=== PATIENT | female | born 1945 | race Caucasian/White ===

== ENCOUNTER 2016-12-09 04:10 | Inpatient (IN) | payer OTHER ==
--- NOTE | ~2016-12-09 | CN ---
Consultation Report [facility] [address] [place]. [address] NAME: ALBER KHAN : 47 STATUS : ADM IN PAT#: [id number] AGE: 71 ADM/REG DATE : 12/09/16 MR#: [id number] REPORT SERV DATE: 12/12/16 DICTATED BY: RUDOLPH PRAJAPATI DATE: 12/12/16 REPORT STATUS : Draft TRANSCRIBED BY: MODL DATE: 12/12/16 PSYCHIATRIC CONSULTATION DATE OF CONSULTATION: 12/12/2016 I reviewed this patient's current and old medical records. HISTORY OF PRESENT ILLNESS: She was admitted with severe back pain. She is now status post yet another surgical intervention for spine stabilization. The presence of diskitis and osteomyelitis is suspected. I was consulted to address her anxiety. PAST PSYCHIATRIC HISTORY: I previously saw her in consultation on 08/12/2016 when anxiety was again an issue. She has suffered from anxiety all of her adult life. She now wants to get off Cymbalta, which she has taken for a number of years because it is causing her to sweat excessively. She said that recently, her PCP has switched her to Paxil, but that also caused excessive sweating. She takes Xanax on a p.r.n. basis, but usually takes 0.5 mg b.i.d. SOCIAL HISTORY: She lives with her . MENTAL STATUS: She was complaining of feeling cold. She was cooperative, but somewhat guarded in attitude. Her mood was anxious. Her affect was full and appropriate. Her thinking was logical. She had no delusions. She had no hallucinations. She was oriented to time, place, and person. She demonstrated good recent and remote memory. DIAGNOSIS: Generalized anxiety disorder. RECOMMENDATIONS: I will discontinue the Cymbalta and start her on Lexapro 10 mg daily. While she is in the hospital, I believe we should give her a fixed dosing of Xanax such as 0.5 mg q.a.m. and 1 mg q.h.s. After discharge, she can return to her home Xanax regimen. I will sign off. MICHAEL/JOSE Rudolph Prajapati M.D. / [id number] CC: Lester Navarro D.O.
--- NOTE | ~2016-12-09 | DS ---
Discharge Summary [id number] [facility] [place] [address] NAME: ALBER KHAN : 47 STATUS : DIS IN PAT#: [id number] AGE: 72 ADM/REG DATE : 12/09/16 MR#: [id number] REPORT SERV DATE: 01/16/17 DICTATED BY: LESTER CA DATE: 01/15/17 REPORT STATUS : Draft TRANSCRIBED BY: JOSE DATE: 01/15/17 Data Collection from hospitalization DISCHARGE DIAGNOSES: 1. Previous multiple thoracolumbar surgeries. 2. 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 3. Broken natasha with pseudoarthrosis at T12-L1. 4. Severe spinal stenosis T12-L1 secondary to cage migration. 5. Possible osteomyelitis diskitis T12-L1. 6. Hypertension. 7. Depression. 8. Hypercholesterolemia. 9. Sleep apnea. 10.Coronary artery disease. 11.Chronic urinary tract infections. CONSULTATIONS: 1. Grant Gurrola M.D. 2. Rudolph Alvarez M.D. PROCEDURES: 1. Microscopic surgery hardware removal including rods and cage. Partial corpectomy at T12-L1, incision and drainage of thoracolumbar wound, 12/09/2016. 2. Left side T10-T11 hemilaminectomy, foraminotomy, and facetectomy. Transforaminal diskectomy, T10-11; irrigation and debridement, T10-T11 and T12-L1, 12/14/2016. 3. Repeat irrigation and debridement, interbody fusion with cortical cancellous allograft and bone morphogenic protein. T10-T11, T12-L1, posterolateral spinal fusion with segmental Solera titanium instrumentation, T3-T4, instrumentation to the pelvis, 12/16/2016. 4. CT scan of the lumbar spine without contrast and CT scan of the thoracic spine without contrast, 12/12/2016. PATHOLOGY: Spine, thoracic, lumbar bone tissue and hardware-soft tissue with black foreign material consistent with metallic debris, necrotic bone fragments with calcific debris, no acute inflammation seen. Orthopedic hardware - see gross description. Intervertebral disk, T11-12, - fibrocartilaginous tissue with degenerative changes and focal acute inflammation. Spine, thoracic, and hip bone and tissue - soft tissue - black foreign material consistent with metallic debris, focal acute inflammation. Bone - repair to changes, no acute inflammation seen. DISCHARGE MEDICATIONS: Xanax 1 mg twice a day, Lexapro 10 mg daily, Neurontin 800 mg three times a day, Zosyn 3.375 g IV every 8 hours, MiraLAX powder one packet every morning, Mylanta 30 mL as needed, Dulcolax 15 mg as needed, milk of magnesia 30 mL twice a day as needed, Hyzaar one tablet every morning, hormone compound one capsule at bedtime. ALLERGIES: ALLERGY TABLETS ONE TABLET DAILY NEEDED, PERCOCET 10/325 ONE TABLET EVERY SIX HOURS NEEDED. Discharge Summary [id number] [place]. [address] NAME: ALBER KHAN : 47 STATUS : DIS IN PAT#: [id number] AGE: 72 ADM/REG DATE : 12/09/16 MR#: [id number] REPORT SERV DATE: 01/16/17 DICTATED BY: LESTER CA DATE: 01/15/17 REPORT STATUS : Draft TRANSCRIBED BY: JOSE DATE: 01/15/17 CONDITION AT DISCHARGE: Stable. DISPOSITION: The patient was discharged to [facility] on a regular diet with activities as instructed. HOSPITAL COURSE: This is a 72-year-old female who had, had spine abnormalities over the last 20 plus years. Her original procedures done many years ago and she has had many procedures since then. This was due to a combination of advanced including multiple lumbar fusions, flat back deformity, and attempts at correction with osteotomy of the flat back deformity etc. The patient had, had surgery at multiple locations. She had not had any surgery for several years and then recently had a marked increase in her pain. Workup revealed abnormal findings particularly at T11 and T12 although there was hardware in place. The hardware does cause some artifact. The official MRI report of the thoracic spine indicated extensive motion, degradation, and multilevel areas of significant magnetic susceptibility artifacts due to metal present. There was an abnormal signal pattern at the inferior T9, superior T10 vertebra, and at T9 and T10 intervertebral disk levels with heterogeneous enhancement postcontrast as well as surrounding heterogeneity enhancing soft-tissue thickening in the paravertebral soft tissue region. This was suspicious for diskitis and osteomyelitis pattern with suspected paravertebral phlegmon formation. There was also heterogeneous diffuse irregular abnormal signal T12 vertebra, which showed hyperintense signal on T2 and inversion recovery sequence and heterogeneous enhancement postcontrast extending into the posterior T11-T12 disk interspace with adjacent loss of height at T11 vertebra. There was surrounding paravertebral soft tissue thickening, which showed heterogeneous enhancing postcontrast. This was suspicious for diskitis, osteomyelitis pattern versus extensive reactive signal changes associated with loosening of the pedicles of T12, most prominent on the left side. There was severe spinal canal stenosis at and to the left of midline at T12 followed by hyperintense signal protrusion from the left posterior vertebra seen best on T2 weighted axial images although showing no enhancement postcontrast. The etiology was unclear. This was new compared to a CT scan from January 2013. This could represent chronic heterotopic bone formation associated with abnormal left-sided pedicle. The spinal canal was narrowed to only 4.9 mm and centrally with severe enhancement of the spinal canal and left lateral recess and neural foramina. In addition to the MRI findings, the patient has had an elevated sedimentation rate and elevated CRP. She has not had any fevers, chills, night sweats, or any symptoms that could be compatible with a systemic response to infection. She had become rather limited in her mobility. She had to have assistance just to transfer in and out of the wheelchair and get to the bathroom, is completely wheelchair- bound at this time secondary to chronic pain. Treatment options were discussed and it was elected to proceed with surgical intervention. She was admitted to the hospital at this time for further evaluation and treatment. Upon admission, she was taken to the operating room where she underwent the above-mentioned procedure. She tolerated this well. There were no complications. Postoperatively, she was seen by Dr. Grant Gurrola regarding possible spine infection. During her operation there was serous fluid in the disk space and some phlegmon type tissues, this was sent for culture. Partial corpectomy is being done at T12 and L1. The metallic cage used for the spine consolidation was migrated and impinging on the cord. A natasha was broken on the left side. A long natasha was placed for stabilization on the right side and some tobramycin was placed in Discharge Summary [address] [address] NAME: ALBER KHAN : 47 STATUS : DIS IN [facility]#: [id number] AGE: 72 ADM/REG DATE : 12/09/16 MR#: [id number] REPORT SERV DATE: 01/16/17 DICTATED BY: LESTER CA DATE: 01/15/17 REPORT STATUS : Draft TRANSCRIBED BY: JOSE DATE: 01/15/17 the wound. The patient reported having problems with urinary tract infections and said she had been hospitalized at [facility] and may [facility] last year for urinary tract infection. She remembered being given nitrofurantoin. Urine cultures from 2016, in the [facility] system had grown very sensitive Klebsiella and later Enterococcus faecalis. It appeared that the patient had been on chronic nitrofurantoin towards the Enterococcus and Klebsiella that she grew in the urine in 2016, were both sensitive. She had some form of hormone compounds. Cultures were pending. We were going to use empiric daptomycin and aztreonam for now. On postop day 1, she was doing well. Homans sign was negative. Her dressings were clean, dry, and intact. She was afebrile. Her blood pressure was low. Daptomycin and aztreonam were continued for now. IV fluids were decreased. On the , she was a little hoarse. She could move her legs okay. She was anxious. She had, had some night sweats that she felt was related to Cymbalta. On 12/12/2016, she was seen by Dr. Rudolph Alvarez to address her anxiety. He had seen her in July 2016, when her anxiety had been an issue. She had suffered from anxiety all of her adult life. She now wants to get off Cymbalta, which she had taken for number of years because it was causing her to sweat excessively. She said that recently her primary care physician had switched her to Paxil, but that also caused excessive sweating. She takes Xanax on an as needed basis, but they usually takes 0.5 mg twice a day. The Cymbalta was going to be discontinued and we were going to start her on Lexapro. She was felt to have a generalized anxiety disorder. While she was in the hospital, he felt that she should be given a sixth dose of Xanax. After discharge, she could return to her home Xanax regimen. Her blood cultures were negative. On 12/13/2016, she had a CT scan of the lumbar spine without contrast and a CT scan of the thoracic spine without contrast. The patient had definite gross loss of bone on both the inferior body of T12 and superior body of L1 missing. The patient has a three column instability that was only being stabilized by the right-sided hardware. She was not able to get out of bed. A followup CT scan had shown that there was still some questionable defect of the bone at T10 and T11 that could potentially still have some infectious area. We would also need to repeat the irrigation and debridement, at T12-L1. 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 On 12/14/2016, she was taken to the operating room where she underwent the above-mentioned procedure. She tolerated this well and there were no complications. She was evaluated by Physical Therapy. It was felt that she would need a very long course of antibiotics. She had, had some itching and some confusion. On 12/16/2016, she was afebrile. Her blood pressure control was a little better. Aztreonam was continued. On 12/16/2016, she was taken back to the operating room where she underwent the above-mentioned procedure. She tolerated this well and there were no complications. On 12/17/2016, she was afebrile. Her cultures were negative. She had no complaints of leg pain. The aztreonam was continued. She had no shortness of breath. She did complain of severe back pain. Blood pressure control was variable. ESR was found to be 114. She had no shortness of breath. The right side of her back hurts more than the left. Over the next couple of days, she remained stable. A PICC line was inserted. She continued to remain afebrile. Her abdomen remained soft and nontender. She complained of severe right flank and back pain when moving or walking. She continued to progress and discharge planning was performed. She had no new symptoms. On 12/26/2016, discharge instructions were given. Due to her improved and stable condition, she was discharged to [facility] with the above- stated instructions. Discharge Summary [address] [address] NAME: ALBER KHAN : 47 STATUS : DIS IN [facility]#: [id number] AGE: 72 ADM/REG DATE : 12/09/16 MR#: [id number] REPORT SERV DATE: 01/16/17 DICTATED BY: LESTER CA DATE: 01/15/17 REPORT STATUS : Draft TRANSCRIBED BY: JOSE DATE: 01/15/17 Information collected by: Maricel Alvares I submit the above information as my discharge summary. TG/JOSE Lester Ca D.O. / [id number] CC: Van De La Cruz M.D. Denis Kennedy, M.D. Paul Cornea, M.D. [facility]
--- NOTE | ~2016-12-09 | OP ---
Record Of Operation [facility] [address] [place]. [address] NAME: ALBER KHAN : 47 STATUS : ADM IN PAT#: [id number] AGE: 71 ADM/REG DATE : 12/09/16 MR#: [id number] REPORT SERV DATE: 12/09/16 DICTATED BY: VU CA DATE: 12/09/16 REPORT STATUS : Draft TRANSCRIBED BY: MODL DATE: 12/09/16 DATE OF PROCEDURE: 12/09/2016 PREOPERATIVE DIAGNOSES: 1. Previous multiple thoracolumbar surgeries. 2. Possible hematogenous osteomyelitis, T11-12 per MRI report, but T12-L1 at surgery. POSTOPERATIVE DIAGNOSES: 1. Previous multiple thoracolumbar surgeries. 2. Possible hematogenous osteomyelitis, T11-12 per MRI report, but T12-L1 at surgery. 3. Broken natasha with pseudoarthrosis at T12-L1. 4. Severe spinal stenosis, T12-L1 secondary to cage migration. 5. Possible osteomyelitis diskitis, T12-L1. PROCEDURES: 1. Microscopic surgery. 2. Hardware removal, including rods and cage. 3. Partial corpectomy of T12-L1. 4. Incision and drainage for thoracolumbar wound. SURGEON: Vu Ca D.O. GRADES 1 THROUGH 6 TEACHER: Francis Chowdhury. ANESTHESTIC: General. BLOOD LOSS: 150 mL. INDICATIONS: Indications for surgery and risks have been explained. They are listed in history and physical. See that for detail. DESCRIPTION OF PROCEDURE: The patient was brought to the operative suite. No antibiotics given. General anesthetic including endotracheal intubation was administered. Griffiths catheter was placed. The patient was placed prone on a Sunny spine frame. Bony prominences were carefully padded. Thoracolumbar spine was scrubbed with Hibiclens solution. DuraPrep was painted. Sterile drapes were applied. With headlight illumination in the midline and loupe magnification at midline, incision was carried out. Initially, we were going to expose from approximately T8-L2. We divided the fascia in the midline. The paraspinous muscles were retracted laterally. Intraoperative CT scan with O-arm was then obtained to assist with navigational purposes and when we saw the CT scan, much to our surprise, we saw the significant amount of inferior body of T12 and superior body of L1 had been resorted by either instability or osteomyelitis diskitis. There was also a cage migration posterolateral on the left side with impingement on the cord. We then decided to expose completely the hardware. When we had exposed the hardware on the left side, we found that the natasha had broken at the connection between the darryn and Record Of Operation [facility] [address] [place]. [address] NAME: ALBER KHAN : 47 STATUS : ADM IN PAT#: [id number] AGE: 71 ADM/REG DATE : 12/09/16 MR#: [id number] REPORT SERV DATE: 12/09/16 DICTATED BY: VU CA DATE: 12/09/16 REPORT STATUS : Draft TRANSCRIBED BY: JOSE DATE: 12/09/16 the natasha previously. The hardware was completely removed by exposure and then removing. Since the screws themselves were quite stable on T7, 8, and 9 distally on the left, they were loose. On the right, the natasha was removed and all of the screws both proximal and distal were stable and appeared to be well fixed. There was gross instability at T12-L1. Once this was completed, we then used the microscope that was sterilely draped and with navigational assistance, we identified the transverse process at T12 and the remaining transverse process of L1. I went from lateral to medial, identifying the T12 exiting nerve root and then carefully working toward the canal. We did find that there was some serous- type fluid over the hardware on the left side around L2 and cultures were taken. In addition, once we exposed the disk space laterally at T12-L1, there was definitely a straw- colored fluid that was cultured. There was some disk material and phlegmonous tissue that was sent for pathology as well. The fibrous phlegmon-type tissue in the intervening space between the remaining body of T12 and L1 was debrided. Partial corpectomy was carried out to get down more natural of a bleeding bone. Very carefully under the microscope, I then worked from lateral to medial and carefully finally exposed the cage from the lateral aspect. We then very gently were able to manipulate the cage anteriorly into the interbody space and laterally staying away from the cord itself. Cage was successfully removed without difficulty. We then copiously irrigated the entire wound. Tobramycin powder was placed within the wound since she was allergic to multiple antibiotics. After cultures were taken, clindamycin 600 mg was given IV. We then placed a long natasha from T7-L4 on the right side to provide some temporary stabilization. The patient is not stable enough to be gotten out of bed. She will have to be log rolled and maintained in a bed rest until we are able to return to surgery, repeat irrigation and debridement, and reconstruct in a more definitive manner. I did not want to do the reconstruction today because I do not know if there is true infection. If so, I do not know what organism, and particularly if there should be a MRSA, I would not want to reconstruct until there has been multiple irrigation and debridements. After placing the natasha on the right side, the natasha was still high and was quite stable. We placed a 15 Nash drain. The myofascial layer was closed with double- looped #1 PDS suture. The subcutaneous tissue was closed with 2-0 Vicryl suture, 2-0 vertical mattress nylon suture was used for skin closure. Sterile dressings were applied. The patient returned to supine position, awakened, extubated, and taken to the recovery room in satisfactory condition having tolerated the procedure well. Sponge, needle, and instrument counts were correct. No intraoperative complications noted. SH/MODL Vu Ca D.O. / [id number] CC: Vu Ca D.O.
--- NOTE | ~2016-12-09 | CN ---
Consultation Report [facility] [address] [place]. [address] NAME: ALBER KHAN : 47 STATUS : ADM IN [facility]#: [id number] AGE: 71 ADM/REG DATE : 12/09/16 MR#: [id number] REPORT SERV DATE: 12/10/16 DICTATED BY: DOMITILA YANES DATE: 12/09/16 REPORT STATUS : Draft TRANSCRIBED BY: MODL DATE: 12/09/16 INFECTIOUS DISEASE CONSULTATION DATE OF CONSULTATION: REASON FOR CONSULT: Possible spine infection. HISTORY OF PRESENT ILLNESS: A 71 years old white lady with extensive spine fusion surgeries from T9 to the sacral spine, bilateral knee replacement, sleep apnea, hypertension, coronary artery disease, recurrent UTIs, who I saw in 2012 for Pseudomonas thoracic spine infection. Unfortunately, I cannot access the note from 2012 in [facility] or [facility]. It appears that I treated her with aztreonam in the hospital. At some point, we tried Cipro, but she really had severe arthralgias. I have not seen her lately. She says she has been weak since June with low back and hip pain. Eventually, she was unable to move and get out of bed. She also states that in July after an epidural injection, she became incontinent of urine and then later of stools. She did not seek attention from Dr. Navarro until recently. She had an MRI of the thoracic spine at the end of October, had motion artifact, but showed abnormal signal at T9-T10 endplates and T9-T10 disks with some enhancing soft tissue and the paravertebral soft tissues. This was concerning for an osteomyelitis and diskitis and paravertebral phlegmon. Also abnormal signal at T12, T1, and T11 disk, with vertebral height loss at T11 and paravertebral soft tissue thickening, again suspicious for diskitis and osteomyelitis. There is also severe central spine stenosis at T12. She had apparently elevated inflammatory markers, so Dr. Navarro decided to admit the patient for surgery. Today, he had an exploration and found an unstable T12-L1 joint, there is serous fluid in the disk space and some phlegmon type tissue. This was sent for culture. The partial corpectomy was done at T12 and L1. The metallic cage used for the spine consolidation was migrated and impinging on the cords, a natasha was broken on the left side. Dr. Navarro put a long natasha for stabilization on the right side and put some tobramycin in the wound. The patient reports having problems with urinary tract infections and that she was hospitalized at [facility] and [facility] last year for UTI. She remembers being given nitrofurantoin. I found urine cultures in the [facility] from 2016 that grew very sensitive Klebsiella and later an enterococcus faecalis. She reports alternating soft and hard stools. No shortness of breath. No knee pain. No decubiti. PAST MEDICAL HISTORY: As mentioned above plus hyperlipidemia. ALLERGIES: SHE REMEMBER HAVING MAYBE A RASH TO PENICILLIN, MAYBE 10 YEARS AGO. SHE STATES SHE IS ABLE OR CAN TAKE KEFLEX. SHE DOES NOT KNOW ABOUT CEPHALOSPORINS OR VANCOMYCIN WHETHER SHE HAS AN ALLERGY OR NOT. CIPRO CAUSED JOINT WITH TENDON PAIN. Consultation Report [facility] [address] [place]. [address] NAME: ALBER KHAN : 47 STATUS : ADM IN [facility]#: [id number] AGE: 71 ADM/REG DATE : 12/09/16 MR#: [id number] REPORT SERV DATE: 12/10/16 DICTATED BY: DOMITILA YANES DATE: 12/09/16 REPORT STATUS : Draft TRANSCRIBED BY: JOSE DATE: 12/09/16 MEDICATIONS ON ADMISSION: Xanax as needed, baclofen, Voltaren, duloxetine, gabapentin, losartan with hydrochlorothiazide, nitrofurantoin at bedtime, Percocet as needed, MiraLAX, some hormone compound, and an allergy tablet. SOCIAL HISTORY: Lives with her . She gets some help during the day. FAMILY HISTORY: Not obtained at this time. PHYSICAL EXAMINATION: GENERAL: She is alert. HEENT: Oral mucosa without erythema. Sclerae are white. LUNGS: Clear to auscultation anteriorly. HEART: Regular rhythm with a soft murmur. ABDOMEN: Compressible, soft. EXTREMITIES: Knees without inflammatory changes. Feet without erythema. She has a Griffiths catheter. LABORATORY WORK: Creatinine 1.0, WBC 8, hemoglobin 8. Microbiology: L3 lumbar fluid Gram stain, rare white blood cells, no organisms. T12-L1 disk space Gram stain, moderate white blood cells, no organisms. Chest x-ray without infiltrates but there are low lung volumes. ASSESSMENT AND PLAN: 1. Possible T12-L1 osteomyelitis and diskitis, status post surgical debridement today. 2. History of extensive spine fusion surgeries. 3. History of Pseudomonas T8 with T9 infection in 2013, I cannot access those records. 4. History of urinary tract infection .. 5. History of bilateral knee replacement. 6. States she has been incontinent of urine and stool since July. 7. History of antibiotic intolerances and allergies. It looks like she is on chronic nitrofurantoin to which the enterococcus and Klebsiella that she grew in the urine in 2016 are both sensitive. She takes some form of hormone compound and I have not talked to her about this yet. Pending cultures. We will use empiric daptomycin and aztreonam, and hopefully, could do penicillin allergy testing. I discussed with the patient. MIKE/JOSE Consultation Report [address] [place]. [address] NAME: ALBER KHAN : 47 STATUS : ADM IN [facility]#: [id number] AGE: 71 ADM/REG DATE : 12/09/16 MR#: [id number] REPORT SERV DATE: 12/10/16 DICTATED BY: DOMITILA YANES DATE: 12/09/16 REPORT STATUS : Draft TRANSCRIBED BY: JOSE DATE: 12/09/16 Domitila Yanes M.D. / [id number] CC: Lester Navarro D.O.
--- NOTE | ~2016-12-09 | OP ---
Record Of Operation [facility] [address] [place]. 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 PROCEDURES: 1. Repeat irrigation and debridement. 2. Interbody fusion with cortical cancellous allograft and bone morphogenic protein, T10- T11, T12-L1. 3. Posterolateral spinal fusion with segmental Solera titanium instrumentation, T3 to T4 instrumentation to the pelvis. SURGEON: Lester Ca D.O. MILK HOUSE WORKER: Francis Chowdhury. ANESTHESIA: General. ESTIMATED BLOOD LOSS: 500 mL. INDICATIONS FOR SURGERY: A 71-year-old female, who has had multiple spine surgeries in the past. Now, she has developed a significant osteomyelitis, diskitis, at T10-T11 and T12-L1. She has a large bony defect particularly at T12-L1 with at least half the body of T12 resolved and approximately a third of the body of L1 missing. At T10-11, there was a left- sided small area of osteomyelitis and diskitis. These have all been debrided and repeatedly washed out. Now brought to surgery for final reconstruction. The defect at T12-L1 is definitely problematic and that there was definitely a three-column instability. We will need many points of fixation both above and below. Thus, the exposure was widened on our last surgery just two days ago to repeat the irrigation and debridement. We now returned to do the final reconstruction. PROCEDURE IN DETAIL: The patient was on antibiotics and brought to the operative suite. General anesthetic including endotracheal intubation was administered. Because we were going all the way to the upper thoracic spine, we did place her in Hurtado three-point fixation. The scalp was painted with Betadine solution. Hurtdao three-point fixation was attached to the skull using 60 pounds of torque in standard position. Hurtado was attached to the top portion of the Sunny bed. The patient was in a clamshell, rotated to 180 degrees in the prone position. The bony prominences were carefully padded. The previous sutures were removed and the scrubbed with Hibiclens solution. DuraPrep was painted. Sterile were drapes applied. The old sutures were removed. The wound was opened, copious irrigation was several 1000 mL Record Of Operation [facility] [address] [place]. [address] NAME: ALBER KHAN : 47 STATUS : ADM IN PAT#: [id number] AGE: 71 ADM/REG DATE : 12/09/16 MR#: [id number] REPORT SERV DATE: 12/16/16 DICTATED BY: LESTER CA DATE: 12/16/16 REPORT STATUS : Draft TRANSCRIBED BY: JOSE DATE: 12/16/16 irrigating solution was carried out. Next, we used a medium dose of bone morphogenic protein, along with a copious amount of cancellous bone allograft chips, and packed the interbody space at T12-L1, with a small dose of protein and chips at T10-T11. After the interbody fusions were completed, we then attached a reference frame to the spinous process of T2. Intraoperative CT scan with O-arm was obtained, CT information was used to register the navigational system. With navigational assistance, I created a airline transport pilot hole through the pedicle at T6, T5, T4, and T3 bilateral. The airline transport pilot holes were tapped. The facet joints were debrided. The spinous processes were debrided along with the transverse processes, and decortication was carried out. The polyaxial Solera titanium screw was inserted at T6, T5, T4, and T3. We then went to the bottom portion of the spine, we placed a reference frame in the bottom of the sacrum, and a re-registration of the navigational system was carried out. We then placed airline transport pilot holes through the sacral S2 into the ilium bilaterally. We placed S1 airline transport pilot holes as well as an L4 airline transport pilot hole on the left. There was already screws at L4, L3, and L2 on the right and none of the holes on the pedicles of L2 and 3 on the left were completely missing after the bone had been stressed, due to wobbling screws. After the airline transport pilot holes were drilled, the holes were tapped and at S2 we placed a 7.5 x 80 mm screw, at S1 we placed a 7.5 x 50 mm screw , and at L4 we placed a 6.5 x 50 screw. We then did our double natasha reconstruction, we extended the natasha from waljkbzd-no-rrrdyo, all the way to the L4. We then created a second natasha from the S2 all the way up to T8, and then did a double natasha reconstruction with dxit-oq-byfr connectors across the area of the greatest stress at T10-T11 and T12-L1. We did this on both sides, thus created a very rigid stable construct across the thoracolumbar junction. Finally, a posterior lateral fusion was carried out from T3 to L4 bilateral. Intraoperative CT scan with O-arm was repeated showing good position of all implants and hardware. The myofascial layer was closed with double looped #1 PDS suture. The subcutaneous tissue was closed with 2-0 Vicryl sutures, 2-0 vertical mattress nylon suture was used for skin closure. Sterile dressings were applied. The patient was awakened, extubated, taken to recovery room in satisfactory condition having tolerated the procedure well. Sponge, needle, and instrument counts were correct. No complications noted. /JOSE Lester Ca D.O. / [id number] CC: Record Of Operation [address] [address] NAME: ALBER KHAN : 47 STATUS : ADM IN [facility]#: [id number] AGE: 71 ADM/REG DATE : 12/09/16 MR#: [id number] REPORT SERV DATE: 12/16/16 DICTATED BY: LESTER CA DATE: 12/16/16 REPORT STATUS : Draft TRANSCRIBED BY: JOSE DATE: 12/16/16 Van De La Cruz M.D.
--- NOTE | ~2016-12-09 | OP ---
Record Of Operation [facility] [address] [place]. [address] NAME: ALBER KHAN : 47 STATUS : ADM IN PAT#: [id number] AGE: 71 ADM/REG DATE : 12/09/16 MR#: [id number] REPORT SERV DATE: 12/14/16 DICTATED BY: LESTER CA DATE: 12/14/16 REPORT STATUS : Draft TRANSCRIBED BY: MODL DATE: 12/14/16 DATE OF PROCEDURE: PREOPERATIVE DIAGNOSES: 1. Previous L4 star T7-L4 fusion. 2. Hematogenous osteomyelitis, diskitis T12-L1 and T10-11. 3. Gross instability, T12-L1, secondary to the above. POSTOPERATIVE DIAGNOSES: 1. Previous L4 star T7-L4 fusion. 2. Hematogenous osteomyelitis, diskitis T12-L1 and T10-11. 3. Gross instability, T12-L1, secondary to the above. PROCEDURES: 1. Left-side T10-11 hemilaminectomy, foraminotomy, and facetectomy. 2. Transforaminal diskectomy T10-11. 3. Irrigation and debridement T10, T11, and T12-L1. SURGEON: Lester Ca D.O. MUNICIPAL ENGINEER: Francis Chowdhury. ANESTHESIA: General. ESTIMATED BLOOD LOSS: 200 mL. INDICATIONS FOR SURGERY: Indications for surgery are listed in the chart. Briefly, the patient has been previously taken to surgery five days ago, had hardware removal of interbody cage that had migrated against the spinal cord at T12-L1, and was found to have definite gross loss of bone on both the inferior body of T12 and superior body of L1 missing. The patient has a three-column instability that is only being stabilized by the right-sided hardware at this time. Thus, she is not able to get out of bed. The patient had followup CT scan which shows that there is still some questionable defect of the bone at T10 and 11 that could potentially still have some infectious area and also the need to repeat the irrigation and debridement at the T12-L1. She has grown Pseudomonas organism this is simply the Pseudomonas osteomyelitis diskitis probably related to her infection some four years ago. The patient was identified in the preop holding and all questions were answered. Once again, I explained to the patient the risks including everything up to and including paralysis, quadriplegia, or even . Consent form has been signed. Antibiotic was already being given. The neurophysiology monitoring leads were inserted. The patient brought to the operative suite. General anesthetic including endotracheal intubation was administered. She was very gently transferred to the supine position on the Sunny bed. After intubation, she was clamshelled over that and the top portion of the Record Of Operation [facility] [address] [place]. [address] NAME: ALBER KHAN : 47 STATUS : ADM IN PAT#: [id number] AGE: 71 ADM/REG DATE : 12/09/16 MR#: [id number] REPORT SERV DATE: 12/14/16 DICTATED BY: LESTER CA DATE: 12/14/16 REPORT STATUS : Draft TRANSCRIBED BY: JOSE DATE: 12/14/16 Sunny spine frame and rotated to 180 degrees into a prone position to keep her stable during the rotation. The bony prominences were carefully padded. Thoracolumbar spine was scrubbed with Hibiclens solution. DuraPrep was painted. Sterile drapes were applied. The previous incision was reopened. The wound appeared rather clean and there was no purulence of any kind. Intraoperative CT scan with O-arm was obtained to allow for navigational assistance. At T10-11, we identified the lamina, I removed all the soft tissue around the lamina of T10-11. Laminectomy was carried out with a cutting bur, a tony bur, and 2 mm Kerrison rongeur. I entered from a gztugnb-ql-ihlnro direction and after removing the lamina and the facet joint. I was able to enter the lateral portion of the T10-11 disk space. There was no gross purulence. I did take cultures at T10-T11. The disk space was curetted. Part of the disk space appeared to be fused part. It still had some soft tissue. After the debridement, I copiously irrigated both the T10-11 as T12-L1, both with clear solution as well as Betadine containing solution. Finally, tobramycin powder was placed in the disk spaces at T12-L1. The wound was then closed with double looped #1 PDS suture. The subcutaneous tissue was closed with 2-0 Vicryl suture, 2-0 vertical mattress nylon suture was used for skin closure. Sterile dressings were applied. The patient returned to supine position, awakened, extubated, taken to recovery room in satisfactory condition having tolerated procedure well. Sponge, needle, and instrument counts were correct. No intraoperative complications noted. STEPHANY/JOSE Lester Ca D.O. / [id number] CC: Van De La Cruz M.D.
--- NOTE | ~2016-12-09 | PREOPHP ---
PreOp History and Physical [facility] [address] [place]. [address] NAME: ALBER KHAN : 47 STATUS : ADM IN PAT#: [id number] AGE: 71 ADM/REG DATE : 12/09/16 MR#: [id number] REPORT SERV DATE: 12/09/16 DICTATED BY: LESTER NAVARRO DATE: 12/09/16 REPORT STATUS : Draft TRANSCRIBED BY: MODL DATE: 12/09/16 CHIEF COMPLAINT: Severe axial spine pain. HISTORY OF PRESENT ILLNESS: This is a 71-year-old female, who has had spine abnormalities for the last 20 plus years. Her original procedure was many years ago, and she has had many procedures since then. This is due to a combination of the events including multiple lumbar fusions, flat back deformity, attempts at correction with osteotomy of the flat back deformity, etc. The patient has had surgeries at multiple locations. She has not had any surgery for several years and has recently had a marked increase in pain. A workup revealed abnormal findings, particularly at T11 and T12, although there is hardware in place, and the hardware does cause some artifact. The official MRI report of the thoracic spine indicates extensive motion degradation and multilevel areas of significant magnetic susceptibility artifact due to metal present. There is an abnormal signal pattern at the inferior T9, superior T10 vertebra and at T9 and T10 intervertebral disc levels with heterogeneous enhancement post-contrast as well as surrounding heterogeneity, enhancing soft tissue thickening in the paravertebral soft tissue region. This is suspicious for discitis and osteomyelitis pattern with suspected paravertebral phlegmon formation. There is also a heterogeneous diffuse irregular abnormal signal, T12 vertebra, which shows hyperintense signal on T2, an inversion recovery sequence, and heterogeneous enhancement post-contrast, extending into the posterior T11-12 disc interspace with adjacent loss of height at T11 vertebra. There is surrounding paravertebral soft tissue thickening, which shows heterogeneous enhancing post-contrast. This is suspicious for discitis, osteomyelitis pattern versus extensive reactive signal changes associated with loosening of the pedicles of T12, most prominent on the left side. There is severe spinal canal stenosis at and to the left of midline at T12 caused by hyperintense signal protrusion from the left posterior vertebra, seen best on T2-weighted axial images although showing no enhancement post- contrast. The etiology is unclear. This is new compared to a CT scan from 02/11/2013. This could represent chronic heterotropic bone formation associated with the abnormal left- sided pedicle. The spinal canal is narrowed to only 4.9 mm and centrally with severe enhancement of the spinal canal and left lateral recess and neural foramina. In addition to the MRI findings just noted. The patient has had elevated sed rate and elevated CRP. She has not had fever, chills, night sweats, or any symptoms that would be compatible with a systemic response to infection. She has become rather limited in her mobility. She has to have assistance just to transfer in and out of the wheelchair and get to the bathroom. She has been walking to a limited degree several months ago, now just almost completely wheelchair bound secondary to chronic pain, it is not because there is a major neurologic deficit. The patient has been admitted for hardware removal on the left side, followed by laminectomy, foraminotomy, facetectomy, and biopsies at T11-12 to try to decompress the canal and to also determine if there is an infection, there will also be biopsies taken at T9-10. We will leave the right-sided hardware in place. The patient understands this does have significant risk including, but not limited to, neurologic deficit that could include everything up to paralysis, could have a spinal fluid leak with the need for arthrodesis and/or drainage and repair in the future. The patient understands there is no guarantee that we will be able to give a complete answer to all of her problems. The patient also has perioperative complications such as UTI, PE, pneumonia, [place], CVA, etc. Consent form has been signed. PreOp History and Physical [address] [address] NAME: ALBER KHAN : 47 STATUS : ADM IN PAT#: [id number] AGE: 71 ADM/REG DATE : 12/09/16 MR#: [id number] REPORT SERV DATE: 12/09/16 DICTATED BY: LESTER NAVARRO DATE: 12/09/16 REPORT STATUS : Draft TRANSCRIBED BY: JOSE DATE: 12/09/16 PAST MEDICAL HISTORY: Extensive. It is for hypertension, depression, hypercholesterolemia, sleep apnea, coronary artery disease, chronic UTIs. PAST SURGICAL HISTORY: She has had multiple spine surgeries with fusion and has been extended all the way from T9 to the sacrum. She has had right knee arthroplasty and left knee arthroplasty. CURRENT MEDICATIONS: Include Topamax, Valium, oxycodone, Macrodantin, losartan, Lidoderm patches, Neurontin, baclofen, Xanax, Prozac. ALLERGIES: INCLUDE CEPHALOSPORINS, CIPRO, PENICILLINS, POSSIBLY MORPHINE, SHE IS NOT QUITE SURE. SHE THINKS SHE IS OKAY WITH DILAUDID, AND SHE QUESTIONS WHETHER SHE IS ALLERGIC TO VANCOMYCIN AND DOES NOT REMEMBER WHAT KIND OF REACTION SHE HAD. SOCIAL HISTORY: She is , retired. Does not smoke or use any alcohol. FAMILY HISTORY: Negative. REVIEW OF SYSTEMS: The patient has chronic pain syndrome, obesity. She has DJD of the SI joints, chronic headaches, fibromyalgia. PHYSICAL EXAMINATION: VITAL SIGNS: She is 5 feet 2 inches, 175 pounds. BMI is 32. GENERAL: She is alert, cooperative, well oriented. She ambulates very limited amount with assistance. HEENT: Exam is grossly normal. LUNGS: Clear to auscultation. HEART: Rate is regular and rhythmic. ABDOMEN: Soft with good bowel sounds. No peritoneal signs noted. MUSCULOSKELETAL: The spine itself has an increase in the thoracic kyphosis. She has midline incision, which is well healed. There is no swelling nor erythema noted in the area of the previous lower thoracic incision. There is some pain with soft tissue palpation, but it is on the left and right side, both in the lower thoracic as well as the mid lumbar area. Because of her pain syndrome, it is difficult to say for sure she has some pain. With trying to do neurologic motor strength resistive testing, her iliopsoas, adductor, abductors, quadriceps, hamstrings, tibialis anterior, and gastrocsoleus are intact. It is very difficult to rate the true motor strength. It appears her pain when trying to do proximal testing such as iliopsoas is intact but at least 3/5 to 4/5. The lower muscles of the quadriceps, the tibialis anterior, and gastroc soleus seem to be 5/5. Patellar and Achilles reflexes are both absent. Toes are downgoing. No ankle clonus is found. Movement of any kind over spine seems to cause significant pain. Orthopedically, she does not have any pain with movement of hips, knees, or ankles. There are pulses in all four extremities. No abnormal skin lesions are found. ASSESSMENT: PreOp History and Physical [address] [address] NAME: ALBER KHAN : 47 STATUS : ADM IN [facility]#: [id number] AGE: 71 ADM/REG DATE : 12/09/16 MR#: [id number] REPORT SERV DATE: 12/09/16 DICTATED BY: LESTER NAVARRO DATE: 12/09/16 REPORT STATUS : Draft TRANSCRIBED BY: MODL DATE: 12/09/16 1. T12 severe spinal stenosis on the left. 2. Previous surgery many years ago. 3. Rule out had hematogenous osteomyelitis discitis. RECOMMENDATION: As listed above. /JOSE Lester Navarro D.O. / [id number]
[~2016-12-09 04:10] MED LIST: ALLERGY TABLET PO; ASAB PO; BL FLAX SEED1000 MG OR; CALTRA600D PO; CINNAMON +CHROMIUM PO; CYMBALTA60 PO; ENDOCET1 TA3 PO; GLUCCHONDR PO; HORMONE COMPOUND PO; HYZAAR 100/25 T1 TAB PO; LEXAPRO10 PO; LIOR10 PO; LIPITOR10 PO; MACROBID PO; MACRODANTIN 10100 MG PO; MINIVELLE PATCH TOP; MIRALAX POWDER1 PKT PO; MULTIPLE VIT PO; NEUR800 PO; NIACIN 500 PO; OPANA ER5 MG PO; OXYCOD PO; PERCOCET 10/3251 TAB PO; PERCOCET1 TA4 PO; POTASSIUM95 MG PO; SKELAXIN8 PO; TOPAMAX25 PO; V5 PO; VICKS SINEX12 HR NAS; VIVELLE SY0.0375 MG/ TOP; VIVELLE-DOT0.1 MG TOP; VIVELLE0.1 MG TD; VOLT75 PO; XANAX1 MG PO; ZANAFLEX2 MG PO; [UNRECOGNIZED DRUG - CODE]; [UNRECOGNIZED DRUG - MIXTURE]
[2016-12-09 05:45] LABS: HEMATOCRIT 34.1 % (36.0-48.0); HEMOGLOBIN 10.5 g/dL (12.0-16.0)
[2016-12-09 06:00] LABS: BUN (BLOOD UREA NITROGEN) 29 MG/DL (6-23); CHLORIDE, SERUM 102 MMOL/L (96-112); CO2 (CARBON DIOXIDE) 32 MMOL/L (24-34); CREATININE 1.17 MG/DL (0.55-1.02); GFR AFRICAN AMERICAN 55 ML/MIN (>=60); GFR NON AFRICAN AMERICAN 47 ML/MIN (>=60); GLUCOSE, SERUM 99 MG/DL (60-99); POTASSIUM, SERUM 3.6 MMOL/L (3.5-5.3); SODIUM, SERUM 141 MMOL/L (135-148)
[2016-12-09 10:45] LABS: BASOPHILS 0.1 %; BASOPHILS ABSOLUTE 0.01 10/3/uL (0.0-0.16); EOSINOPHILS 0.7 %; EOSINOPHILS ABSOLUTE 0.06 10/3/uL (0.0-0.53); HEMOGLOBIN 8.7 g/dL (12.0-16.0); IMMATURE GRANULOCYTES 0.2 %; IMMATURE GRANULOCYTES ABSOLUTE 0.02 10/3/uL (0.0-0.11); LYMPHOCYTES 19.4 %; LYMPHOCYTES ABSOLUTE 1.62 10/3/uL (0.67-4.30); MEAN CORPUS HGB CONC 31.5 g/dL (32.0-36.0); MEAN CORPUSCULAR HEMOGLOB 26.1 pg (26.0-34.0); MEAN CORPUSCULAR VOLUME 82.9 fL (80-100); MEAN PLATELET VOLUME 10.4 fL (9.2-13.0); MONOCYTES 8.8 %; MONOCYTES ABSOLUTE 0.73 10/3/uL (0.21-1.20); NEUTROPHILS 70.8 %; PLATELET COUNT 250 10/3/uL (150-400); RBC DISTRIBUTION WIDTH 14.6 % (12.0-16.0); WHITE BLOOD CELLS 8.3 10/3/uL (4.5-10.5)
[2016-12-09 10:46] LABS: HEMATOCRIT 27.6 % (36.0-48.0); MANUAL DIFF NO %; RED CELL COUNT 3.33 10/6/uL (4.0-5.6)
[2016-12-09 10:55] LABS: BUN (BLOOD UREA NITROGEN) 24 MG/DL (6-23); CALCIUM, SERUM 8.4 MG/DL (8.5-10.4); CHLORIDE, SERUM 105 MMOL/L (96-112); CO2 (CARBON DIOXIDE) 33 MMOL/L (24-34); CREATININE 1.04 MG/DL (0.55-1.02); GFR AFRICAN AMERICAN 63 ML/MIN (>=60); GFR NON AFRICAN AMERICAN 54 ML/MIN (>=60); GLUCOSE, SERUM 126 MG/DL (60-99); POTASSIUM, SERUM 3.3 MMOL/L (3.5-5.3); SODIUM, SERUM 144 MMOL/L (135-148)
[2016-12-10 06:17] LABS: ASCORBIC ACID (UR NOT ORDER) NEG (NEG); BILIRUBIN, URINE NEGATIVE (NEG); KETONE, URINE NEGATIVE (NEG); LEUKOCYTE ESTERASE(NOT OR LARGE (NEG); WBC (NOT ORDERED) (RFLEX) 135 (0-5)
[2016-12-10 06:31] LABS: BASOPHILS 0.1 %; BASOPHILS ABSOLUTE 0.01 10/3/uL (0.0-0.16); EOSINOPHILS 0.6 %; EOSINOPHILS ABSOLUTE 0.05 10/3/uL (0.0-0.53); HEMATOCRIT 26.8 % (36.0-48.0); HEMOGLOBIN 8.4 g/dL (12.0-16.0); IMMATURE GRANULOCYTES 0.2 %; IMMATURE GRANULOCYTES ABSOLUTE 0.02 10/3/uL (0.0-0.11); LYMPHOCYTES 11.6 %; LYMPHOCYTES ABSOLUTE 1.04 10/3/uL (0.67-4.30); MEAN CORPUS HGB CONC 31.3 g/dL (32.0-36.0); MEAN CORPUSCULAR HEMOGLOB 26.3 pg (26.0-34.0); MEAN PLATELET VOLUME 11.5 fL (9.2-13.0); MONOCYTES 13.5 %; MONOCYTES ABSOLUTE 1.21 10/3/uL (0.21-1.20); NEUTROPHILS ABSOLUTE 6.63 10/3/uL (2.02-8.40); PLATELET COUNT 283 10/3/uL (150-400); RBC DISTRIBUTION WIDTH 15.1 % (12.0-16.0); RED CELL COUNT 3.19 10/6/uL (4.0-5.6)
[2016-12-10 06:32] LABS: MANUAL DIFF NO %
[2016-12-10 06:35] LABS: CHLORIDE, SERUM 100 MMOL/L (96-112); CO2 (CARBON DIOXIDE) 31 MMOL/L (24-34); CREATININE 0.84 MG/DL (0.55-1.02); GFR AFRICAN AMERICAN 82 ML/MIN (>=60); GFR NON AFRICAN AMERICAN 70 ML/MIN (>=60); GLUCOSE, SERUM 120 MG/DL (60-99); SODIUM, SERUM 140 MMOL/L (135-148)
[2016-12-10 06:36] LABS: BUN (BLOOD UREA NITROGEN) 14 MG/DL (6-23)
[2016-12-11 05:06] LABS: BASOPHILS 0.4 %; BASOPHILS ABSOLUTE 0.03 10/3/uL (0.0-0.16); EOSINOPHILS 3.6 %; EOSINOPHILS ABSOLUTE 0.27 10/3/uL (0.0-0.53); HEMATOCRIT 26.9 % (36.0-48.0); HEMOGLOBIN 8.5 g/dL (12.0-16.0); IMMATURE GRANULOCYTES 0.1 %; IMMATURE GRANULOCYTES ABSOLUTE 0.01 10/3/uL (0.0-0.11); LYMPHOCYTES 5.6 %; LYMPHOCYTES ABSOLUTE 0.42 10/3/uL (0.67-4.30); MEAN CORPUS HGB CONC 31.6 g/dL (32.0-36.0); MEAN CORPUSCULAR HEMOGLOB 26.4 pg (26.0-34.0); MEAN CORPUSCULAR VOLUME 83.5 fL (80-100); MEAN PLATELET VOLUME 11.2 fL (9.2-13.0); MONOCYTES 14.7 %; NEUTROPHILS 75.6 %; NEUTROPHILS ABSOLUTE 5.65 10/3/uL (2.02-8.40); PLATELET COUNT 264 10/3/uL (150-400); RBC DISTRIBUTION WIDTH 14.9 % (12.0-16.0); RED CELL COUNT 3.22 10/6/uL (4.0-5.6); WHITE BLOOD CELLS 7.5 10/3/uL (4.5-10.5)
[2016-12-11 05:13] LABS: A/G RATIO 0.5 (0.7-1.9); BUN (BLOOD UREA NITROGEN) 17 MG/DL (6-23); CALCIUM, SERUM 8.6 MG/DL (8.5-10.4); CHLORIDE, SERUM 101 MMOL/L (96-112); CO2 (CARBON DIOXIDE) 33 MMOL/L (24-34); CREATININE 0.88 MG/DL (0.55-1.02); GFR AFRICAN AMERICAN 77 ML/MIN (>=60); GFR NON AFRICAN AMERICAN 67 ML/MIN (>=60); GLOBULIN 4.1 G/DL (2.5-4.1); GLUCOSE, SERUM 100 MG/DL (60-99); SGOT(AST) 15 U/L (5-40); SGPT(ALT) 15 U/L (5-65); SODIUM, SERUM 141 MMOL/L (135-148); TOTAL PROTEIN 6.1 G/DL (6.0-8.5)
[2016-12-11 05:14] LABS: ALKALINE PHOSPHATASE 107 U/L (45-117); MANUAL DIFF NO %; TOTAL BILIRUBIN 0.3 MG/DL (0-1.2)
[2016-12-12 11:17] LABS: BASOPHILS 0.4 %; BASOPHILS ABSOLUTE 0.02 10/3/uL (0.0-0.16); EOSINOPHILS 4.4 %; EOSINOPHILS ABSOLUTE 0.23 10/3/uL (0.0-0.53); HEMATOCRIT 25.7 % (36.0-48.0); HEMOGLOBIN 8.2 g/dL (12.0-16.0); LYMPHOCYTES ABSOLUTE 0.57 10/3/uL (0.67-4.30); MEAN CORPUS HGB CONC 31.9 g/dL (32.0-36.0); MEAN CORPUSCULAR HEMOGLOB 26.5 pg (26.0-34.0); MEAN CORPUSCULAR VOLUME 82.9 fL (80-100); MEAN PLATELET VOLUME 10.7 fL (9.2-13.0); MONOCYTES 10.4 %; MONOCYTES ABSOLUTE 0.54 10/3/uL (0.21-1.20); NEUTROPHILS 73.8 %; NEUTROPHILS ABSOLUTE 3.84 10/3/uL (2.02-8.40); PLATELET COUNT 285 10/3/uL (150-400); RBC DISTRIBUTION WIDTH 14.7 % (12.0-16.0); WHITE BLOOD CELLS 5.2 10/3/uL (4.5-10.5)
[2016-12-12 11:20] LABS: MANUAL DIFF NO %
[2016-12-12 11:29] LABS: BUN (BLOOD UREA NITROGEN) 16 MG/DL (6-23); CALCIUM, SERUM 8.6 MG/DL (8.5-10.4); CHLORIDE, SERUM 103 MMOL/L (96-112); CO2 (CARBON DIOXIDE) 33 MMOL/L (24-34); CREATININE 0.75 MG/DL (0.55-1.02); GFR AFRICAN AMERICAN 94 ML/MIN (>=60); GFR NON AFRICAN AMERICAN 81 ML/MIN (>=60); GLUCOSE, SERUM 99 MG/DL (60-99); POTASSIUM, SERUM 4.3 MMOL/L (3.5-5.3); SODIUM, SERUM 143 MMOL/L (135-148)
[2016-12-14 06:15] LABS: BASOPHILS 0.4 %; BASOPHILS ABSOLUTE 0.02 10/3/uL (0.0-0.16); EOSINOPHILS 6.2 %; IMMATURE GRANULOCYTES 0.2 %; IMMATURE GRANULOCYTES ABSOLUTE 0.01 10/3/uL (0.0-0.11); LYMPHOCYTES 25.6 %; LYMPHOCYTES ABSOLUTE 1.24 10/3/uL (0.67-4.30); MEAN CORPUS HGB CONC 32.2 g/dL (32.0-36.0); MEAN CORPUSCULAR HEMOGLOB 26.8 pg (26.0-34.0); MEAN CORPUSCULAR VOLUME 83.3 fL (80-100); MEAN PLATELET VOLUME 10.5 fL (9.2-13.0); MONOCYTES 10.5 %; MONOCYTES ABSOLUTE 0.51 10/3/uL (0.21-1.20); NEUTROPHILS 57.1 %; NEUTROPHILS ABSOLUTE 2.77 10/3/uL (2.02-8.40); PLATELET COUNT 321 10/3/uL (150-400); RBC DISTRIBUTION WIDTH 14.2 % (12.0-16.0); WHITE BLOOD CELLS 4.9 10/3/uL (4.5-10.5)
[2016-12-14 06:16] LABS: HEMOGLOBIN 10.3 g/dL (12.0-16.0); MANUAL DIFF NO %; RED CELL COUNT 3.84 10/6/uL (4.0-5.6)
[2016-12-14 06:26] LABS: BUN (BLOOD UREA NITROGEN) 14 MG/DL (6-23); CALCIUM, SERUM 8.6 MG/DL (8.5-10.4); CHLORIDE, SERUM 101 MMOL/L (96-112); CO2 (CARBON DIOXIDE) 34 MMOL/L (24-34); CREATININE 0.65 MG/DL (0.55-1.02); GFR AFRICAN AMERICAN 104 ML/MIN (>=60); GFR NON AFRICAN AMERICAN 90 ML/MIN (>=60); GLUCOSE, SERUM 86 MG/DL (60-99); POTASSIUM, SERUM 4.3 MMOL/L (3.5-5.3); SODIUM, SERUM 143 MMOL/L (135-148)
[2016-12-15 04:52] LABS: BASOPHILS 0.2 %; BASOPHILS ABSOLUTE 0.02 10/3/uL (0.0-0.16); EOSINOPHILS ABSOLUTE 0.08 10/3/uL (0.0-0.53); IMMATURE GRANULOCYTES 0.1 %; IMMATURE GRANULOCYTES ABSOLUTE 0.01 10/3/uL (0.0-0.11); LYMPHOCYTES 8.8 %; LYMPHOCYTES ABSOLUTE 0.74 10/3/uL (0.67-4.30); MEAN CORPUS HGB CONC 32.3 g/dL (32.0-36.0); MEAN CORPUSCULAR HEMOGLOB 27.1 pg (26.0-34.0); MEAN CORPUSCULAR VOLUME 83.9 fL (80-100); MEAN PLATELET VOLUME 10.5 fL (9.2-13.0); MONOCYTES 16.1 %; MONOCYTES ABSOLUTE 1.35 10/3/uL (0.21-1.20); NEUTROPHILS 73.8 %; NEUTROPHILS ABSOLUTE 6.17 10/3/uL (2.02-8.40); PLATELET COUNT 312 10/3/uL (150-400); RBC DISTRIBUTION WIDTH 14.5 % (12.0-16.0)
[2016-12-15 04:53] LABS: HEMATOCRIT 25.1 % (36.0-48.0); HEMOGLOBIN 8.1 g/dL (12.0-16.0); MANUAL DIFF NO %; RED CELL COUNT 2.99 10/6/uL (4.0-5.6); WHITE BLOOD CELLS 8.4 10/3/uL (4.5-10.5)
[2016-12-15 04:57] LABS: BUN (BLOOD UREA NITROGEN) 16 MG/DL (6-23); CALCIUM, SERUM 7.9 MG/DL (8.5-10.4); CHLORIDE, SERUM 101 MMOL/L (96-112); CO2 (CARBON DIOXIDE) 33 MMOL/L (24-34); CREATININE 0.78 MG/DL (0.55-1.02); GFR AFRICAN AMERICAN 89 ML/MIN (>=60); GFR NON AFRICAN AMERICAN 77 ML/MIN (>=60); GLUCOSE, SERUM 133 MG/DL (60-99); POTASSIUM, SERUM 4.3 MMOL/L (3.5-5.3); SODIUM, SERUM 140 MMOL/L (135-148)
[2016-12-16 06:13] LABS: BUN (BLOOD UREA NITROGEN) 13 MG/DL (6-23); CALCIUM, SERUM 8.6 MG/DL (8.5-10.4); CHLORIDE, SERUM 104 MMOL/L (96-112); CO2 (CARBON DIOXIDE) 35 MMOL/L (24-34); CREATININE 0.74 MG/DL (0.55-1.02); GFR AFRICAN AMERICAN 95 ML/MIN (>=60); GFR NON AFRICAN AMERICAN 82 ML/MIN (>=60); SODIUM, SERUM 144 MMOL/L (135-148)
[2016-12-16 06:14] LABS: GLUCOSE, SERUM 100 MG/DL (60-99)
[2016-12-16 06:21] LABS: BASOPHILS 0.3 %; BASOPHILS ABSOLUTE 0.03 10/3/uL (0.0-0.16); EOSINOPHILS 1.8 %; EOSINOPHILS ABSOLUTE 0.18 10/3/uL (0.0-0.53); HEMATOCRIT 30.1 % (36.0-48.0); HEMOGLOBIN 9.8 g/dL (12.0-16.0); IMMATURE GRANULOCYTES 0.2 %; IMMATURE GRANULOCYTES ABSOLUTE 0.02 10/3/uL (0.0-0.11); LYMPHOCYTES ABSOLUTE 1.27 10/3/uL (0.67-4.30); MANUAL DIFF NO %; MEAN CORPUS HGB CONC 32.6 g/dL (32.0-36.0); MEAN CORPUSCULAR HEMOGLOB 27.9 pg (26.0-34.0); MEAN CORPUSCULAR VOLUME 85.8 fL (80-100); MEAN PLATELET VOLUME 10.5 fL (9.2-13.0); MONOCYTES 16.8 %; MONOCYTES ABSOLUTE 1.64 10/3/uL (0.21-1.20); NEUTROPHILS 67.9 %; NEUTROPHILS ABSOLUTE 6.63 10/3/uL (2.02-8.40); PLATELET COUNT 317 10/3/uL (150-400); RBC DISTRIBUTION WIDTH 14.8 % (12.0-16.0); RED CELL COUNT 3.51 10/6/uL (4.0-5.6); WHITE BLOOD CELLS 9.8 10/3/uL (4.5-10.5)
[2016-12-16 11:05] LABS: BASOPHILS 0.2 %; BASOPHILS ABSOLUTE 0.02 10/3/uL (0.0-0.16); EOSINOPHILS 1.9 %; HEMOGLOBIN 8.8 g/dL (12.0-16.0); IMMATURE GRANULOCYTES 0.8 %; IMMATURE GRANULOCYTES ABSOLUTE 0.09 10/3/uL (0.0-0.11); LYMPHOCYTES 10.6 %; LYMPHOCYTES ABSOLUTE 1.14 10/3/uL (0.67-4.30); MEAN CORPUS HGB CONC 33.6 g/dL (32.0-36.0); MEAN CORPUSCULAR VOLUME 83.4 fL (80-100); MONOCYTES 13.6 %; MONOCYTES ABSOLUTE 1.46 10/3/uL (0.21-1.20); NEUTROPHILS 72.9 %; NEUTROPHILS ABSOLUTE 7.86 10/3/uL (2.02-8.40); PLATELET COUNT 299 10/3/uL (150-400); RBC DISTRIBUTION WIDTH 15.1 % (12.0-16.0); RED CELL COUNT 3.14 10/6/uL (4.0-5.6); WHITE BLOOD CELLS 10.8 10/3/uL (4.5-10.5)
[2016-12-16 11:08] LABS: HEMATOCRIT 26.2 % (36.0-48.0); MANUAL DIFF NO %
[2016-12-16 11:15] LABS: BUN (BLOOD UREA NITROGEN) 14 MG/DL (6-23); CHLORIDE, SERUM 104 MMOL/L (96-112); CO2 (CARBON DIOXIDE) 32 MMOL/L (24-34); CREATININE 0.61 MG/DL (0.55-1.02); GFR AFRICAN AMERICAN 106 ML/MIN (>=60); GFR NON AFRICAN AMERICAN 92 ML/MIN (>=60); GLUCOSE, SERUM 120 MG/DL (60-99); SODIUM, SERUM 143 MMOL/L (135-148)
[2016-12-17 06:58] LABS: BASOPHILS 0.1 %; BASOPHILS ABSOLUTE 0.01 10/3/uL (0.0-0.16); EOSINOPHILS 0.6 %; EOSINOPHILS ABSOLUTE 0.07 10/3/uL (0.0-0.53); HEMOGLOBIN 7.7 g/dL (12.0-16.0); IMMATURE GRANULOCYTES 0.4 %; IMMATURE GRANULOCYTES ABSOLUTE 0.05 10/3/uL (0.0-0.11); LYMPHOCYTES 9.2 %; LYMPHOCYTES ABSOLUTE 1.04 10/3/uL (0.67-4.30); MEAN CORPUS HGB CONC 33.5 g/dL (32.0-36.0); MEAN CORPUSCULAR VOLUME 83.6 fL (80-100); MEAN PLATELET VOLUME 10.1 fL (9.2-13.0); MONOCYTES 16.2 %; MONOCYTES ABSOLUTE 1.83 10/3/uL (0.21-1.20); NEUTROPHILS 73.5 %; NEUTROPHILS ABSOLUTE 8.33 10/3/uL (2.02-8.40); PLATELET COUNT 322 10/3/uL (150-400); RBC DISTRIBUTION WIDTH 15.4 % (12.0-16.0); RED CELL COUNT 2.75 10/6/uL (4.0-5.6); WHITE BLOOD CELLS 11.3 10/3/uL (4.5-10.5)
[2016-12-17 07:06] LABS: MANUAL DIFF NO %
[2016-12-17 07:13] LABS: ALKALINE PHOSPHATASE 96 U/L (45-117); BUN (BLOOD UREA NITROGEN) 12 MG/DL (6-23); CALCIUM, SERUM 7.8 MG/DL (8.5-10.4); CHLORIDE, SERUM 100 MMOL/L (96-112); CO2 (CARBON DIOXIDE) 30 MMOL/L (24-34); GFR AFRICAN AMERICAN 87 ML/MIN (>=60); GFR NON AFRICAN AMERICAN 75 ML/MIN (>=60); GLUCOSE, SERUM 122 MG/DL (60-99); SGPT(ALT) 17 U/L (5-65); SODIUM, SERUM 139 MMOL/L (135-148); TOTAL PROTEIN 5.4 G/DL (6.0-8.5)
[2016-12-17 07:20] LABS: A/G RATIO 0.4 (0.7-1.9); ALBUMIN 1.4 G/DL (3.5-5.0); SGOT(AST) 41 U/L (5-40); TOTAL BILIRUBIN 1.2 MG/DL (0-1.2)
[2016-12-18 05:43] LABS: BASOPHILS 0.2 %; BASOPHILS ABSOLUTE 0.02 10/3/uL (0.0-0.16); EOSINOPHILS 3.5 %; EOSINOPHILS ABSOLUTE 0.33 10/3/uL (0.0-0.53); HEMOGLOBIN 9.8 g/dL (12.0-16.0); IMMATURE GRANULOCYTES 0.4 %; IMMATURE GRANULOCYTES ABSOLUTE 0.04 10/3/uL (0.0-0.11); LYMPHOCYTES 14.7 %; LYMPHOCYTES ABSOLUTE 1.39 10/3/uL (0.67-4.30); MANUAL DIFF NO %; MEAN CORPUS HGB CONC 32.7 g/dL (32.0-36.0); MEAN CORPUSCULAR HEMOGLOB 27.6 pg (26.0-34.0); MEAN CORPUSCULAR VOLUME 84.5 fL (80-100); MEAN PLATELET VOLUME 9.9 fL (9.2-13.0); MONOCYTES 14.3 %; MONOCYTES ABSOLUTE 1.35 10/3/uL (0.21-1.20); NEUTROPHILS 66.9 %; NEUTROPHILS ABSOLUTE 6.32 10/3/uL (2.02-8.40); PLATELET COUNT 296 10/3/uL (150-400); RED CELL COUNT 3.55 10/6/uL (4.0-5.6); WHITE BLOOD CELLS 9.5 10/3/uL (4.5-10.5)
[2016-12-18 05:53] LABS: BUN (BLOOD UREA NITROGEN) 13 MG/DL (6-23); CALCIUM, SERUM 7.8 MG/DL (8.5-10.4); CHLORIDE, SERUM 104 MMOL/L (96-112); CO2 (CARBON DIOXIDE) 31 MMOL/L (24-34); CREATININE 0.71 MG/DL (0.55-1.02); GFR AFRICAN AMERICAN 100 ML/MIN (>=60); GFR NON AFRICAN AMERICAN 86 ML/MIN (>=60); GLUCOSE, SERUM 105 MG/DL (60-99); POTASSIUM, SERUM 3.8 MMOL/L (3.5-5.3); SODIUM, SERUM 144 MMOL/L (135-148)
[2016-12-20 05:21] LABS: HEMATOCRIT 28.7 % (36.0-48.0); HEMOGLOBIN 9.5 g/dL (12.0-16.0); MEAN CORPUS HGB CONC 33.1 g/dL (32.0-36.0); MEAN CORPUSCULAR HEMOGLOB 28.8 pg (26.0-34.0); RBC DISTRIBUTION WIDTH 14.8 % (12.0-16.0); WHITE BLOOD CELLS 7.8 10/3/uL (4.5-10.5)
[2016-12-20 05:23] LABS: PLATELET COUNT 457 10/3/uL (150-400)
[2016-12-20 05:24] LABS: MANUAL DIFF YES %
[2016-12-20 05:40] LABS: EOSINOPHILS 2 %; EOSINOPHILS ABSOLUTE (CALC) 0.16 10/3/uL (0.0-0.53); LYMPHOCYTES 16 %; LYMPHOCYTES ABSOLUTE (CALC) 1.25 10/3/uL (0.67-4.30); MONOCYTES 5 %; MONOCYTES ABSOLUTE (CALC) 0.39 10/3/uL (0.21-1.20); NEUTROPHILS ABSOLUTE (CALC) 6.01 10/3/uL (2.02-8.40); SEGMENTED NEUTROPHIL (0) 77 %; TOTAL NUCLEATED CELLS 100
[2016-12-20 05:42] LABS: PLATELET ESTIMATE INC (ADEQUATE); RBC MORPHOLOGY NORM (NORMAL)
[2016-12-20 06:06] LABS: SED RATE 114 MM/HR (0-20)
[2016-12-21 05:20] LABS: A/G RATIO 0.4 (0.7-1.9); ALBUMIN 1.6 G/DL (3.5-5.0); BUN (BLOOD UREA NITROGEN) 15 MG/DL (6-23); CALCIUM, SERUM 8.6 MG/DL (8.5-10.4); CHLORIDE, SERUM 97 MMOL/L (96-112); CREATININE 0.73 MG/DL (0.55-1.02); GFR AFRICAN AMERICAN 97 ML/MIN (>=60); GFR NON AFRICAN AMERICAN 83 ML/MIN (>=60); GLOBULIN 4.2 G/DL (2.5-4.1); GLUCOSE, SERUM 102 MG/DL (60-99); POTASSIUM, SERUM 3.7 MMOL/L (3.5-5.3); SGOT(AST) 25 U/L (5-40); SGPT(ALT) 17 U/L (5-65); SODIUM, SERUM 141 MMOL/L (135-148); TOTAL PROTEIN 5.8 G/DL (6.0-8.5)
[2016-12-21 05:21] LABS: ALKALINE PHOSPHATASE 126 U/L (45-117); CO2 (CARBON DIOXIDE) 38 MMOL/L (24-34)
[2016-12-24 05:58] LABS: BASOPHILS 0.4 %; BASOPHILS ABSOLUTE 0.04 10/3/uL (0.0-0.16); EOSINOPHILS 3.7 %; EOSINOPHILS ABSOLUTE 0.38 10/3/uL (0.0-0.53); HEMOGLOBIN 10.1 g/dL (12.0-16.0); IMMATURE GRANULOCYTES 1.1 %; IMMATURE GRANULOCYTES ABSOLUTE 0.11 10/3/uL (0.0-0.11); LYMPHOCYTES ABSOLUTE 1.55 10/3/uL (0.67-4.30); MEAN CORPUS HGB CONC 31.8 g/dL (32.0-36.0); MEAN CORPUSCULAR HEMOGLOB 27.8 pg (26.0-34.0); MEAN CORPUSCULAR VOLUME 87.6 fL (80-100); MEAN PLATELET VOLUME 9.6 fL (9.2-13.0); MONOCYTES 11.8 %; MONOCYTES ABSOLUTE 1.22 10/3/uL (0.21-1.20); RBC DISTRIBUTION WIDTH 15.4 % (12.0-16.0); RED CELL COUNT 3.63 10/6/uL (4.0-5.6); WHITE BLOOD CELLS 10.3 10/3/uL (4.5-10.5)
[2016-12-24 06:02] LABS: HEMATOCRIT 31.8 % (36.0-48.0)
[2016-12-24 06:04] LABS: MANUAL DIFF NO %; PLATELET COUNT 706 10/3/uL (150-400)
[2016-12-24 06:13] LABS: ALKALINE PHOSPHATASE 123 U/L (45-117); BUN (BLOOD UREA NITROGEN) 13 MG/DL (6-23); CALCIUM, SERUM 9.1 MG/DL (8.5-10.4); CHLORIDE, SERUM 99 MMOL/L (96-112); CO2 (CARBON DIOXIDE) 35 MMOL/L (24-34); CREATININE 0.92 MG/DL (0.55-1.02); GFR AFRICAN AMERICAN 73 ML/MIN (>=60); GFR NON AFRICAN AMERICAN 63 ML/MIN (>=60); GLUCOSE, SERUM 96 MG/DL (60-99); POTASSIUM, SERUM 3.7 MMOL/L (3.5-5.3); SGOT(AST) 20 U/L (5-40); SGPT(ALT) 18 U/L (5-65); SODIUM, SERUM 140 MMOL/L (135-148)
[2016-12-24 06:16] LABS: A/G RATIO 0.4 (0.7-1.9); ALBUMIN 2.1 G/DL (3.5-5.0); GLOBULIN 4.9 G/DL (2.5-4.1); TOTAL BILIRUBIN 0.3 MG/DL (0-1.2)
[2016-12-24 08:41] LABS: SED RATE 110 MM/HR (0-20)
== END 2016-12-26 19:12 | disposition left against medical advice (07) | DRG 460 ==
LOC: SDC/OF 04:10 → PACU 10:22 → 3SO 13:22
PROVIDERS: Internal Medicine Infectious Disease; Orthopaedic Surgery Orthopaedic Surgery of the Spine
DX: T84.018A Broken internal joint prosthesis, other site, initial encounter (principal); M46.25 Osteomyelitis of vertebra, thoracolumbar region; I10 Essential (primary) hypertension; K21.9 Gastro-esophageal reflux disease without esophagitis; Z23 Encounter for immunization
CPT/HCPCS: 36415; 71010; 72040; 72100; 72128; 72131; 72170; 80048; 80053; 81001; 82330; 82962; 83735; 85014; 85018; 85025; 85652; 86850; 86900; 86901; 86920; 87015; 87040; 87070; 87075; 87077; 87086; 87102; 87116; 87186; 87205; 87641; 88300; 88304; 88305; 88311; 90662; 93005; 95018; 97110-GP; 97116-GP; 97163-GP; 97530-GP; A9270-GY; C1713; C1768; G0008; J0878; J1170; J1580; J2250; J2274; J2370; J2405; J2540; J2543; J2550; J2710; J3010; J3260; J3370; P9016